=== PATIENT | female | born 1950 | race Caucasian/White ===

== ENCOUNTER → 2021-06-12 13:12 | Outpatient (CLI) | payer MEDICARE, SELFPAY ==
--- NOTE | 2021-06-12 13:17 | ECHOD_ITS ---
Reason For Study: Palps, arrhythmia Procedure This was a 2D Doppler, Color Flow transthoracic echocardiogram. Exam performed in department. Left Ventricle Normal LV size. Left ventricular systolic function is normal. The estimated ejection fraction is 55 %. Stage 1 diastolic dysfunction. No regional wall motion abnormalities noted. Right Ventricle Normal RV size. Normal systolic function. Atria Normal left atrium. Normal right atrium. Mitral Valve Normal mitral valve. Mild (1+) eccentric mitral valve insufficiency. Tricuspid Valve Normal tricuspid valve. Mild (1+) tricuspid valve insufficiency. Pulmonary artery systolic pressure is 25 mmHg. Aortic Valve Normal aortic valve. Trisinus/trileaflet aortic valve. Pulmonic Valve Normal pulmonic valve. Great Vessels Normal aortic root. The pulmonary artery is normal size. Normal inferior vena cava. Pericardium/Pleural Small pericardial effusion. MMode/2D Measurements & Calculations LVIDd: 3.6 cm IVSd: 0.98 cm Ao root diam: 3.6 cm LVIDs: 2.2 cm LVPWd: 0.93 cm RVDd: 3.0 cm FS: 37.4 % LAV(MOD-bp): 47.3 ml LVAd ap4: 22.4 cm2 LVAd ap2: 19.8 cm2 LAV(MOD-bp) Indexed: 27.0 ml/m2 LVLd ap4: 7.3 cm LVLd ap2: 6.7 cm LAV(MOD-sp2): 42.0 ml EDV(MOD-sp4): 57.1 ml EDV(MOD-sp2): 48.0 ml LAV(MOD-sp4): 50.3 ml EDV(sp4-el): 58.5 ml EDV(sp2-el): 49.5 ml LVAs ap4: 11.9 cm2 LVAs ap2: 11.0 cm2 LVLs ap4: 6.1 cm LVLs ap2: 5.8 cm ESV(MOD-sp4): 19.3 ml ESV(MOD-sp2): 17.5 ml ESV(sp4-el): 19.6 ml ESV(sp2-el): 17.5 ml EF(MOD-sp4): 66.2 % EF(MOD-sp2): 63.6 % EF(sp4-el): 66.6 % SV(MOD-sp4): 37.8 ml SV(MOD-sp2): 30.5 ml SV(sp4-el): 39.0 ml LA dimension(2D): 3.6 cm LA A4 area: 17.7 cm2 RA A4 area: 15.1 cm2 Doppler Measurements & Calculations MV E max manas: 66.9 cm/sec Lat Peak E' Manas: 9.0 cm/sec Med Peak E' Manas: 6.6 cm/sec MV A max manas: 71.3 cm/sec E/E' lat: 7.4 E/E' med: 10.2 MV E/A: 0.94 Ao V2 max: 166.7 cm/sec LV V1 max: 137.9 cm/sec PA V2 max: 90.3 cm/sec Ao max P.1 mmHg LV V1 max P.6 mmHg TR max manas: 231.4 cm/sec TR max P.4 mmHg ECHO/Echo Complete Interpretation Summary Normal LV size. Left ventricular systolic function is normal. The estimated ejection fraction is 55 %. Mild (1+) eccentric mitral valve insufficiency. Stage 1 diastolic dysfunction. Mild (1+) tricuspid valve insufficiency. Ordering Physician: Ghassan Marcelo Referring Physician: Rebeca Caldwell M.D. Performed By: Zandra Dixon RDCS
== END ==
PROVIDERS: PCP Internal Medicine; Referring Provider Internal Medicine Cardiovascular Disease; Visit Provider Internal Medicine Cardiovascular Disease
DX: R00.2 Palpitations (principal)
CPT/HCPCS: 93306

== ENCOUNTER 2021-06-20 07:13 | Emergency (ER) | payer MEDICARE, SELFPAY ==
[2021-06-20 07:14] VITALS: BP 145/80; PULSE 81; RESP 16; TEMP 36.3; O2SAT 97; BMI 22.2
[2021-06-20 07:24] VITALS: BP 129/74; PULSE 76; RESP 16; TEMP 37.2; O2SAT 98
[2021-06-20 07:48] LABS: Bacteria 0 SEEN /hpf (None Seen); Mucous, Urine 0 SEEN /hpf (<or=2+)
[2021-06-20 07:52] LABS: Color, Urine Yellow (Yellow); Glucose, Dipstick Normal (Normal); Ketone-Dipstick 5 mg/dl (Negative); Leukocyte Esterase-Dipstick 500 /ul (Negative); Nitrite-Dipstick Negative (Negative); Occult Blood-Urine 250 /ul (Negative); Protein-Dipstick 100 mg/dl (Negative); Urine Bilirubin Dipstick Negative (Negative); Urine Clarity Cloudy (Clear); Urine Urobilinogen Normal (Normal)
[2021-06-20 07:57] LABS: Red Blood Cells-Urine > 100 SEEN /hpf (0-5); Squamous Epithelial Cells - UA 0-5 SEEN /hpf (5-10); White Blood Cells >100 SEEN /hpf (0-5)
--- NOTE | 2021-06-20 08:02 | EX.ED.DYSGE1 ---
HPI History of Present Illness Chief Complaint: Complaint Informant: patient Onset/Context/Timing Onset: Yesterday Context: Gradual Onset Timing: Continuous Quality: Burning Location: Suprapubic area Worsened by: Urination Relieved by: Advil Narrative Narrative: Patient presents with hematuria, urgency, and dysuria that began yesterday. Patient states it has gotten worse today. Patient states she has some burning in her suprapubic area. Patient states it is worse when she urinates. Patient noted some blood in her urine today. Patient states she took some Advil which helped. Patient denies any nausea or vomiting. Patient denies any back pain. Patient denies any fevers or chills. PFSH PFS Medical History (Updated 06/20/21 @ 08:[address] Raúl Guzman DO) Osteoporosis Vitamin D deficiency Home Medications estradiol 0.5 appful VAGINAL QWEEK PRN g 05/26/21 [History Last Taken Unknown] fluorometholone 0.1 % eye drops,suspension 1 drp OPHTHALMIC (EYE) BID ml 05/26/21 [History Last Taken Unknown] cephalexin 250 mg PO Q6 #28 capsule 06/20/21 [Rx Last Taken Unknown] Allergy/AdvReac Type Severity Reaction Status Date / Time latex Allergy Rash Verified 06/20/21 07:34 prednisone AdvReac Unknown Verified 06/20/21 07:34 pseudoephedrine AdvReac Other Verified 06/20/21 07:34 [From [facility]] Surgical History (Updated 06/20/21 @ 08:[address] Raúl Guzman DO) History of hysterectomy Hx of cholecystectomy Social History (Updated 06/20/21 @ 08:[address] Raúl Guzman DO) Smoking Status: Never smoker alcohol intake: current alcohol intake frequency: a few times a month Alcohol type: wine ROS ROS ED Constitutional Constitutional ED: Denies chills or fever(s) Eyes Eyes: Denies blurry vision or change in vision ENT ENT ED: Denies rhinorrhea or sore throat Cardiovascular Cardiovascular: Denies chest pain or palpitations Respiratory/Chest Respiratory/Chest: Denies cough or dyspnea Gastrointestinal Gastrointestinal: Denies nausea or vomiting Genitourinary Genitourinary ED: Reports dysuria and hematuria Musculoskeletal Musculoskeletal: Denies back pain or neck pain Integumentary Reports rash; Denies abscess Neurologic Neurologic: Denies headache(s) or weakness Allergic/Immunologic Allergic/Immunologic ED: Denies mouth swelling or urticaria EXAM Physical Exam Const Vital Signs: 06/20/21 07:14 06/20/21 07:24 Temperature 97.4 F L 98.9 F Temperature Source Temporal Oral Pulse Rate 81 76 Respiratory Rate 16 16 Blood Pressure 145/80 H 129/74 H Blood Pressure Mean 101 92 Pulse Ox 97 98 Oxygen Delivery Method Room Air Room Air Positive well nourished and well developed General Appearance ED: well developed HEENT Reports moist mucous membranes Neck supple and no JVD Resp normal respiratory effort and clear to auscultation bilaterally Cardio regular rate, regular rhythm and no murmurs GI normal to inspection, nondistended, normoactive bowel sounds Palpation: soft and tender suprapubic; Negative for guarding or rebound tenderness present Extremity normal to inspection General Extremety ED: Negative for edema or tenderness General Extremity: Negative for edema Neuro oriented x3, CN's II-XII intact bilaterally and no sensory deficits noted Sensorium / Orientation: alert Motor Exam: strength 5/5 throughout Psych mental status grossly normal Skin no rashes or lesions noted MDM MDM MDM Narrative Medical decision making narrative: Urinalysis was obtained. Leukocyte esterase was 500. Occult blood was 250 there were greater than 100 red blood cells and greater than 100 white blood cells. Patient was given a dose of Keflex here. Patient was given a prescription for Keflex and Pyridium. Patient was instructed to follow-up with her primary care physician in 5 to 7 days. Patient and family understood and were agreeable with the plan. All questions were answered. Lab Data Attestation: I reviewed the patient's lab results. Labs: Laboratory Results - last 24 hr 06/20/21 07:45 Urine Color Yellow Urine Clarity Cloudy Urine pH 5.0 Ur Specific [place] 1.020 Urine Protein 100 H Urine Glucose (UA) Normal Urine Ketones 5 H Urine Occult Blood 250 H Urine Nitrite Negative Urine Bilirubin Negative Urine Urobilinogen Normal Ur Leukocyte Esterase 500 H Urine RBC > 100 SEEN Urine WBC >100 SEEN Ur Squamous Epith Cells 0-5 SEEN Urine Bacteria 0 SEEN Urine Mucus 0 SEEN Discharge Plan Triage Chief Complaint: Complaint ED Provider: Raúl Guzman Dx/Rx/DC Orders Clinical Impression: Cystitis with hematuria Instructions: ED CYSTITIS Female Adult Prescriptions: New cephalexin [cephalexin] 250 MG capsule 250 mg PO Q6 Qty: 28 RF: 0 No Action estradiol 0.01 % (0.1 mg/gram) cream 0.5 appful vaginal QWEEK PRN (Reason: Vaginal Dryness) RF: 0 fluorometholone 0.1 % drops,suspension 1 drp ophthalmic (eye) BID RF: 0 Primary Care Provider: Rebeca Caldwell Referrals: Rebeca Caldwell MD [Primary Care Provider] - 5-7 Days Disposition Disposition: Home, Self Care
[2021-06-20 08:22] VITALS: BP 125/66; PULSE 76; RESP 16; TEMP 36.6; TEMP 37.2; O2SAT 98
[2021-06-20] MEDS: Cephalexin 250 MG Capsule PO (08:22)
== END 2021-06-20 08:30 | disposition home or self-care (01) ==
PROVIDERS: Emergency Provider Emergency Medicine; PCP Internal Medicine
DX: N30.91 Cystitis, unspecified with hematuria (principal); M81.0 Age-related osteoporosis without current pathological fracture; Z79.52 Long term (current) use of systemic steroids; Z90.49 Acquired absence of other specified parts of digestive tract; Z90.710 Acquired absence of both cervix and uterus
CPT/HCPCS: 81001; 99283

== ENCOUNTER → 2021-08-18 11:32 | Outpatient (CLI) | payer MEDICARE, SELFPAY ==
--- NOTE | 2021-08-18 11:40 | US_ITS ---
INDICATION: UTI EXAMINATION: Ultrasound US Kidney(s) complete (eg, kidneys and bladder) TECHNIQUE: Sandoval scale and color doppler images were obtained of the kidneys. COMPARISON: None. FINDINGS: RIGHT KIDNEY: 10.9 x 5.4 x 3.6 cm. There is no hydronephrosis. No shadowing calculus, focal lesion or perinephric collection is demonstrated. LEFT KIDNEY: 11.0 x 4.8 x 4.3 cm. There is no hydronephrosis. No shadowing calculus, focal lesion or perinephric collection is demonstrated. URINARY BLADDER: No acute abnormality. US/Kidney and Bladder IMPRESSION: Negative renal ultrasound. Electronically Signed: Alejo Shetty MD at 16:13 EST Tel , Service support ,
== END ==
PROVIDERS: PCP Internal Medicine; Referring Provider Urology; Visit Provider Urology
DX: N39.0 Urinary tract infection, site not specified (principal)
CPT/HCPCS: 76770

== ENCOUNTER → 2021-09-24 13:38 | Outpatient (CLI) | payer MEDICARE, SELFPAY ==
--- NOTE | 2021-09-24 13:41 | CT_ITS ---
STUDY: CT Abdomen And Pelvis W/O Contrast Injection 09/24/2021 2:42 PM REASON FOR EXAM: Female, 71 years old. Abdominal pain HEMATURIA / LOWER ABD PAIN Individualized dose optimization techniques were used for this CT. COMPARISON: 08/18/2021 ultrasound TECHNIQUE: CT Abdomen And Pelvis W/O Contrast Injection FINDINGS: The visualized lung bases are unremarkable. The visualized portions of the heart are within normal limits. Normal liver. There is non-visualization of the gallbladder, which may be secondary to either contraction or a prior cholecystectomy. Normal spleen. Normal pancreas. Normal bilateral adrenal glands. No acute findings of the right kidney. No acute findings of the left kidney. Normal visualized stomach. Normal small intestine. Stool throughout the colon. There is non-visualization of the appendix. There are calcifications of the abdominal aorta. This is consistent for atherosclerotic disease. There is no abdominal aortic aneurysm. Normal inferior vena cava. Subcentimeter mesenteric lymph nodes. Normal urinary bladder. There is absence of the uterus consistent with a prior hysterectomy. Normal abdominal wall. Normal osseous structures. IMPRESSION: (NOT LISTED IN ORDER OF SIGNIFICANCE) There are no acute findings. Hysterectomy. Other findings as above. Electronically Signed: Raul Ford MD at 14:45 EST , Service support , CT/Abdomen/Pelvis without Cont
== END ==
PROVIDERS: PCP Internal Medicine; Referring Provider Urology; Visit Provider Urology
DX: R31.9 Hematuria, unspecified (principal); R10.30 Lower abdominal pain, unspecified
CPT/HCPCS: 74176

== ENCOUNTER 2021-10-22 15:02 | Outpatient (CLI) | payer MEDICARE, SELFPAY | END 2021-10-22 23:59 | disposition short-term general hospital (02) | LOC: LABSPEC 15:04 | PROVIDERS: PCP Internal Medicine; Referring Provider Otolaryngology; Visit Provider Otolaryngology | DX: J32.9 Chronic sinusitis, unspecified (principal) | CPT/HCPCS: 87070; 87205 ==

== ENCOUNTER 2022-02-25 06:48 | Day surgery (SDC) | payer MEDICARE, SELFPAY ==
[2022-02-25] VITALS (7 sets, daily range): BP systolic 103–133; BP diastolic 66–90; PULSE 70–74; RESP 16–18; TEMP 36.3–37.1; O2SAT 98–100; BMI 22.2
--- NOTE | 2022-02-25 07:16 | PCM.HP.BLA ---
History and Physical Date of Admission: 02/25/22 HPI: This is a very pleasant 71-year-old with no past medical history who arrives for screening colonoscopy. She is not having any abdominal pain. She not having any nausea, vomiting or diarrhea. She is not passing any blood per rectum. She has no family history of colon cancer. Her weight has been stable. Overall she is in very good health. PFSH Medical History Osteoporosis Vitamin D deficiency Social History Smoking Status: Never smoker ROS Const Const: Negative for fatigue, weakness, headache(s), frequent falls, difficulty sleeping or excessive sweating Eyes Eyes: Negative for loss of peripheral vision, transient loss of vision, blurry vision, double vision or tunnel vision ENT ENT: Negative for headache(s), dizziness, Nosebleed/epistaxis or balance problems Cardio Chest Pain: No Edema: None Muscle aches with walking: None Resp Respiratory: Negative for SOB with activity, SOB at rest, SOB orthopnea\SOB lying down, Cough or paroxysmal nocturnal dyspnea GI GI: Negative nausea, vomiting, heartburn or black,tarry stools : Negative for hematuria Musc Musc: Negative for muscle aches/ myalgia, muscle weakness, joint pain or balance problems Skin Skin: Negative non-healing lesions, rash or unusual bruising Neuro Neuro: Negative for dizziness, lightheadedness, near syncope, syncope, orthostatic symptoms, frequent falls, headache(s), weakness, blurry vision, double vision or lack of coordination Christian Hematologic/Lymphatic: Negative for easy bleeding or easy bruising Endo Endo: Negative for fatigue, excessive sweating or increased thirst/drinking Psych Psych: Negative for anxiety or depression Allergy Allergy/Immunology: Negative for hives and Negative for rash Cardiology Exam Const Appearance: cooperative, healthy appearing, no acute distress, well developed and well groomed Nutritional Appearance: average body habitus and well nourished Orientation: alert, awake and oriented x3 Head Head: normal to inspection, normocephalic and atraumatic Ears: hearing grossly normal bilaterally and external ears normal Nose: external nose normal, nares normal, nasal mucous membranes and turbinates normal, septum normal and no nasal discharge Face and Sinus: face symmetric Mouth: oral mucosae normal, tongue normal, oropharynx normal and moist mucous membranes Teeth and gingiva: dentition normal Throat: posterior oropharynx normal, tonsils normal and uvula midline Eyes General: appearance normal, both eyes and all related structures Eyelids: eyelids normal Conjunctivae: conjunctivae normal Pupils: PERRL, normal by confrontation and accommodation normal EOM: EOM intact bilaterally Neck Neck: normal visual inspection, trachea midline and no JVD JVD: +5 Carotids: normal carotid upstroke and bounding pulses Chest Chest inspection: normal inspection of the chest, symmetric chest movement and normal respiratory effort Auscultation: Bilateral: Clear to Auscultation Cardio Palpation: normal PMI Rate: regular rate Rhythm: regular rhythm Heart sounds: S1 normal, S2 normal and normal, physiologic split S2; Negative rub, gallop or murmur GI GI: normal to inspection, soft, no hepatosplenomegaly and bowel sounds present Neuro General: patient alert, patient awake, patient oriented x3, gait normal, moves all extremities and no focal sensory deficit Skin Skin: no rashes or lesions noted Extremities Pulses: Normal: Right Femoral Pulse, Left Femoral Pulse, Right Dorsalis Pedis Pulse, Left Dorsalis Pedis Pulse, Right Posterior Tibial Pulse, Left Posterior Tibial Pulse, Right Radial Pulse and Left Radial Pulse Lower Extremity Edema: None: Bilateral Musculoskel Musculoskeletal: No joint tenderness Psych Psychological: normal affect Assessment and Plan She will undergo direct visualization of her colon via colonoscopy. She was explained alternatives, risk, benefits including not withstanding bleeding, infection, sepsis, perforation, need for emergent surgery . She will have an ASA of 1.
[2022-02-25] MEDS: Lactated Ringers 1,000 ML 15 ML IV (07:29)
--- NOTE | 2022-02-25 08:15 | COLBX_PTH ---
PATIENT: CARMENCITA GUARDADO LOC: EN U#:[id number] AGE/SX: 71/F ROOM: RE02/25/[address]: Dr. Alfred Lopez DO : 1950 BED: DIS: 02/25/2022 SPEC #: [id number] RECD: 02/25/22 11:27 STATUS: FADUMO JEFFERY #: [id number] VAISHALI: 02/25/22 08:[address]: Alfred Lopez DEPT: SURGICAL PATHOLOGY RECD BY: Marjorie Hanna ENTERED: 02/25/22 13:04 SP TYPE: COLON BX OTHR DR: Dr. Rebeca Caldwell MD Tissues: Cecum, NOS Procedures: Surgery Specimen Level IV HEADER OPERATION: Colonoscopy ? open access (MAC) PRE-OP DIAGNOSIS: Screening colonoscopy TISSUE SUBMITTED: Cecum polyp MICROSCOPIC DIAGNOSIS Cecal polyp, biopsy: Fragments of hyperplastic polyp. AM:kelli 02/26/2022 MICROSCOPIC DESCRIPTION Slides are reviewed. GROSS DESCRIPTION Received in fixative is one container labeled with the patient's name and designated cecal polyp. The specimen consists of one irregular fragment of light arias soft tissue that measures 0.8 x 0.5 x 0.2 cm. The specimen is totally submitted in one cassette. / AM:kelli 02/25/2022 TC:5 CPT: 58870
--- NOTE | 2022-02-25 08:56 | OP.COLON_ITS ---
Patient Name: Ginette Millan Procedure Date: 02/25/2022 8:10 AM Date of : 1950 Age: 71 Procedure: Colonoscopy Indications: Screening for colorectal malignant neoplasm Providers: Alfred Lopez DO Medicines: Monitored Anesthesia Care Patient Profile: This is a 71 year old female. Refer to note in patient chart for documentation of history and physical. Last Colonoscopy: more than 10 years ago. Complications: No immediate complications. Procedure: Pre-Anesthesia Assessment: - Prior to the procedure, a History and Physical was performed, and patient medications and allergies were reviewed. The patient is competent. The risks and benefits of the procedure and the sedation options and risks were discussed with the patient. All questions were answered and informed consent was obtained. Patient identification and proposed procedure were verified by the physician. Mental Status Examination: alert and oriented. Airway Examination: normal oropharyngeal airway and neck mobility. Respiratory Examination: clear to auscultation. CV Examination: normal. Prophylactic Antibiotics: The patient does not require prophylactic antibiotics. Prior Anticoagulants: The patient has taken no previous anticoagulant or antiplatelet agents. ASA Grade Assessment: II - A patient with mild systemic disease. After reviewing the risks and benefits, the patient was deemed in satisfactory condition to undergo the procedure. The anesthesia plan was to use moderate sedation / analgesia (conscious sedation). Immediately prior to administration of medications, the patient was re-assessed for adequacy to receive sedatives. The heart rate, respiratory rate, oxygen saturations, blood pressure, adequacy of pulmonary ventilation, and response to care were monitored throughout the procedure. The physical status of the patient was re-assessed after the procedure. After I obtained informed consent, the scope was passed under direct vision. Throughout the procedure, the patient's blood pressure, pulse, and oxygen saturations were monitored continuously. The pediatric colonoscope was introduced through the anus and advanced to the cecum, identified by appendiceal orifice and ileocecal valve. The colonoscopy was performed without difficulty. The patient tolerated the procedure well. The quality of the bowel preparation was good. Scope In: 8:22:12 AM Scope Withdrawal Time 0 hours 15 minutes 53 seconds Scope Out: 8:47:26 AM Total Procedure Duration Time 0 hours 25 minutes 14 seconds Findings: The perianal and digital rectal examinations were normal. A few small-mouthed diverticula were found in the sigmoid colon. A 10 mm polyp was found in the cecum. The polyp was sessile. The polyp was removed with a hot snare. Resection and retrieval were complete. Verification of patient identification for the specimen was done. To prevent bleeding after the polypectomy, two hemostatic clips were successfully placed. There was no bleeding at the end of the procedure. Impression: - Diverticulosis in the sigmoid colon. - One 10 mm polyp in the cecum, removed with a hot snare. Resected and retrieved. Clips were placed. Recommendation: - Repeat colonoscopy in 5 years for surveillance based on pathology results. - Continue present medications. - No aspirin, ibuprofen, naproxen, or other non-steroidal anti-inflammatory drugs for 7 days after polyp removal. Procedure Code(s): --- Professional --- 48866, Colonoscopy, flexible; with removal of tumor(s), polyp(s), or other lesion(s) by snare technique CPT copyright 2017 [employer]. All rights reserved. The codes documented in this report are preliminary and upon property clerk review may be revised to meet current compliance requirements. Alfred Lopez DO 02/25/2022 8:55:48 AM This report has been signed electronically. Number of Addenda: 1 Note Initiated On: 02/25/2022 8:10 AM Addendum Number: 1 Addendum Date: 06/29/2022 6:31:22 AM MAC was used as sedation for this procedure. Alfred Lopez DO 06/29/2022 6:31:26 AM This report has been signed electronically.
--- NOTE | 2022-02-25 08:57 | OP.CCLET_ITS ---
06/29/2022 Rebeca Caldwell [address] [place] [address] Re : Colonoscopy procedure for Ginette Millan Dear Dr. Caldwell This procedure was performed on February. My impressions and recommendations are as follows: Impressions : - Diverticulosis in the sigmoid colon. - One 10 mm polyp in the cecum, removed with a hot snare. Resected and retrieved. Clips were placed. Recommendations : - Repeat colonoscopy in 5 years for surveillance based on pathology results. - Continue present medications. - No aspirin, ibuprofen, naproxen, or other non-steroidal anti-inflammatory drugs for 7 days after polyp removal. My findings are described in the full procedure note, which is enclosed. If I can be of further assistance, please feel free to contact me at . Sincerely, Alfred Lopez, 02/25/2022 8:55:48 AM This report has been signed electronically.
== END 2022-02-25 09:48 | disposition home or self-care (01) ==
LOC: EN 06:50 → AC 06:50
PROVIDERS: PCP Internal Medicine; Referring Provider Internal Medicine; Visit Provider Internal Medicine Gastroenterology
PROC: 0DJD8ZZ Inspection of Lower Intestinal Tract, Via Natural or Artificial Opening Endoscopic (ICD-10-PCS; CPT 45378; principal; 2022-02-25 08:10)
DX: Z12.11 Encounter for screening for malignant neoplasm of colon (principal); K57.30 Diverticulosis of large intestine without perforation or abscess without bleeding; K63.5 Polyp of colon; M19.90 Unspecified osteoarthritis, unspecified site; Z87.19 Personal history of other diseases of the digestive system
CPT/HCPCS: 45385; 88305; J7120; J2405

== ENCOUNTER → 2023-03-23 | Outpatient (CLI) | payer MEDICARE, SELFPAY ==
[2023-03-23 10:44] LABS: Erythrocyte Sedimentation Rate < 1 mm/hr (0-30)
[2023-03-23 11:11] LABS: CRP < 2.90 mg/L (0.0-3.0)
[2023-03-26 13:07] LABS: Anti-Centromere B Ab <0.2 AI (0.0-0.9); Anti-Chromatin <0.2 AI (0.0-0.9); Anti-Jo <0.2 AI (0.0-0.9); Anti-Scleroderma-70 AB 0.8 AI (0.0-0.9); Anti-dsDNA Ab <1 IU/mL (0-9); Beef <0.10 kU/L (Class 0); Chocolate <0.10 kU/L (Class 0); Clam <0.10 kU/L (Class 0); Codfish <0.10 kU/L (Class 0); Corn <0.10 kU/L (Class 0); Egg, White <0.10 kU/L (Class 0); Egg, Whole <0.10 kU/L (Class 0); Milk (Cow) <0.10 kU/L (Class 0); Peanut <0.10 kU/L (Class 0); Pork <0.10 kU/L (Class 0); RNP Ab <0.2 AI (0.0-0.9); SCALLOP <0.10 kU/L (Class 0); SESAME SEED <0.10 kU/L (Class 0); SJOGREN'S Anti-SS-A test < 0.2 AI (0.0-0.9); SJOGREN'S Anti-SS-B test < 0.2 AI (0.0-0.9); Shrimp 0.17 kU/L (Class 0/I); Smith Ab <0.2 AI (0.0-0.9); Soybean <0.10 kU/L (Class 0); Walnut, (Food) <0.10 kU/L (Class 0); Wheat <0.10 kU/L (Class 0)
[2023-03-26 18:09] LABS: Cytoplasmic Ab (C-ANCA) <1:20 titer (Neg:<1:20); Endomysial Antibody IgA Negative (Negative); H. Pylori Antibody (IgG) 0.46 (0.00-0.79); Immunoglobulin A 104 mg/dL (64-422); Immunoglobulin E 90 IU/mL (6-495); Immunoglobulin G 693 mg/dL (586-1602); Immunoglobulin M 86 mg/dL (26-217); Perinuclear Ab (P-ANCA) <1:20 titer (Neg:<1:20); t-Transglutaminase IgA <2 U/mL (0-3)
== END | disposition home or self-care (01) ==
LOC: LAB 10:10
PROVIDERS: PCP Internal Medicine; Referring Provider Internal Medicine Gastroenterology; Visit Provider Internal Medicine Gastroenterology
DX: R00.2 Palpitations (principal); R10.9 Unspecified abdominal pain
CPT/HCPCS: 36415; 82784; 82785; 83516; 85652; 86003; 86005; 86140; 86225; 86235; 86255; 86256; 86677

== ENCOUNTER → 2024-12-27 | Outpatient (CLI) | payer MEDICARE, SELFPAY | END | disposition home or self-care (01) | LOC: LAB 10:23 | PROVIDERS: PCP Internal Medicine; Referring Provider Otolaryngology Otolaryngology/Facial Plastic Surgery; Visit Provider Otolaryngology Otolaryngology/Facial Plastic Surgery | DX: T78.40XA Allergy, unspecified, initial encounter (principal) | CPT/HCPCS: 36415; 86003 ==